=== PATIENT | female | born 1995 | race Caucasian/White ===

== ENCOUNTER 2019-04-16 10:56 | Emergency (ER) | payer BC ==
[~2019-04-16] VITALS: Ht 165.1 cm; Wt 97.8 kg
[~2019-04-16 10:56] MED LIST: IBUP400T; MIRILAX
[2019-04-16] MEDS ORDERED: GLYCERIN ADULT SUPP PR ONE (11:30)
[2019-04-16] MEDS ORDERED: DOCUSATE SODIUM 100 MG CAP PO ONE (11:30)
[2019-04-16 11:50] LABS: BASO % 0.2 % (0.0-1.0); EOS # 0.1 10^3/uL (0.0-0.5); EOS % 0.6 % (0.0-3.0); HEMOGLOBIN 12.2 g/dl (12.0-15.5); LYMPH # 2.3 10^3/uL (1.5-5.0); LYMPH % 18.4 % (24.0-44.0); MEAN CORPUSCULAR HGB CONC 30.5 g/dl (32.0-36.5); MEAN CORPUSCULAR VOLUME 85.3 fl (80.0-96.0); MONO # 0.8 10^3/uL (0.0-0.8); MONO % 6.3 % (0.0-5.0); NEUTROPHILS # 9.4 10^3/uL (1.5-8.5); PLATELET COUNT, AUTOMATED 297 10^3/uL (150-450); RED BLOOD COUNT 4.69 10^6/uL (4.00-5.40); WHITE BLOOD COUNT 12.7 10^3/uL (4.0-10.0)
[2019-04-16 12:32] LABS: BLOOD UREA NITROGEN 9 MG/DL (7-18); CALCIUM LEVEL 9.2 MG/DL (8.5-10.1); CARBON DIOXIDE LEVEL 24 MEQ/L (21-32); CHLORIDE LEVEL 107 MEQ/L (98-107); CREATININE FOR GFR 0.62 MG/DL (0.55-1.30); GLOMERULAR FILTRATION RATE > 60.0 (>60); GLUCOSE, FASTING 81 MG/DL (70-100); HCG, SERUM QUANTITATIVE 33908 MIU/ML; POTASSIUM SERUM 4.3 MEQ/L (3.5-5.1); SODIUM LEVEL 139 MEQ/L (136-145)
--- NOTE | 2019-04-16 13:50 | REP ---
FIRST TRIMESTER ULTRASOUND: Real-time sonographic evaluation of the gravid uterus performed utilizing transabdominal and endovaginal technique. There is a single living intrauterine gestation. The estimated gestational age is 6 weeks 2 days based on a crown-rump length of 6 mm. EDC 12/08/2019. heart rate is 120 beats per minute. There is no subchorionic hemorrhage. There is a cystic structure of the left ovary probably representing a corpus luteum 3.1 x 2.1 x 2.4 cm. There is no torsion with duplex Doppler evaluation. Electronically Signed by Yoni Ozuna MD 04/17/2019 05:49 P
[2019-04-16 14:47] VITALS: BP 111/57
[2019-04-16] MEDS ORDERED: COLA100C5 PO (14:52)
[2019-04-16] MEDS ORDERED: KEFL500C17 PO (14:52)
[2019-04-16 15:08] LABS: CHLAMYDIA DNA AMPLIFICATION NEGATIVE (NEGATIVE); GC DNA AMPLIFICATION NEGATIVE (NEGATIVE)
== END 2019-04-16 15:17 | disposition home or self-care (01) ==
LOC: M ED 10:56
DX: O20.0 Threatened abortion (principal); O34.81 Maternal care for other abnormalities of pelvic organs, first trimester; N83.202 Unspecified ovarian cyst, left side; O23.41 Unspecified infection of urinary tract in pregnancy, first trimester; O99.211 Obesity complicating pregnancy, first trimester; Z3A.01 Less than 8 weeks gestation of pregnancy; Z87.42 Personal history of other diseases of the female genital tract

== ENCOUNTER → 2019-05-26 | Outpatient (CLI) | payer BC ==
[~2019-05-26] MED LIST changes: +COLA100C5 PO; +KEFL500C17 PO
[2019-05-26 16:00] LABS: BASO % 0.2 % (0.0-1.0); EOS # 0.1 10^3/uL (0.0-0.5); EOS % 0.9 % (0.0-3.0); HEMATOCRIT 36.7 % (36.0-47.0); HEMOGLOBIN 11.6 g/dl (12.0-15.5); LYMPH # 1.8 10^3/uL (1.5-5.0); LYMPH % 14.5 % (24.0-44.0); MEAN CORPUSCULAR HEMOGLOBIN 27.6 pg (27.0-33.0); MEAN CORPUSCULAR HGB CONC 31.6 g/dl (32.0-36.5); MEAN CORPUSCULAR VOLUME 87.2 fl (80.0-96.0); MONO # 0.8 10^3/uL (0.0-0.8); MONO % 6.1 % (0.0-5.0); NEUTROPHILS # 9.8 10^3/uL (1.5-8.5); NEUTROPHILS % 77.6 % (36.0-66.0); PLATELET COUNT, AUTOMATED 289 10^3/uL (150-450); RED BLOOD COUNT 4.21 10^6/uL (4.00-5.40); WHITE BLOOD COUNT 12.7 10^3/uL (4.0-10.0)
[2019-05-26 16:11] LABS: GLUCOSE CHALLENGE TEST 1 HOUR 92 MG/DL (LESS THAN 140); HEMOGLOBIN A1c 5.2 %
[2019-05-26 17:13] LABS: CHLAMYDIA DNA AMPLIFICATION NEGATIVE (NEGATIVE); GC DNA AMPLIFICATION NEGATIVE (NEGATIVE)
== END ==
LOC: M PLALAB 09:34
PROVIDERS: ATTEND Advanced Practice Midwife
DX: O99.211 Obesity complicating pregnancy, first trimester (principal); Z3A.00 Weeks of gestation of pregnancy not specified

== ENCOUNTER 2019-07-13 15:42 | Observation (INO) | payer BC ==
[2019-07-13 16:03] VITALS: BP 130/69
[2019-07-13 16:29] LABS: MEAN CORPUSCULAR HEMOGLOBIN 27.8 pg (27.0-33.0); MEAN CORPUSCULAR HGB CONC 32.4 g/dl (32.0-36.5); MEAN CORPUSCULAR VOLUME 85.9 fl (80.0-96.0); PLATELET COUNT, AUTOMATED 251 10^3/uL (150-450); RED BLOOD COUNT 3.96 10^6/uL (4.00-5.40); WHITE BLOOD COUNT 13.7 10^3/uL (4.0-10.0)
[2019-07-13 17:45] VITALS: BP 131/73
[2019-07-13] MEDS ORDERED: SILVER NITRATE APPLICATOR As Ordered ONE (17:53)
[2019-07-13] MEDS ORDERED: CHLOROPROCAINE 2 % INJ PRES.FREE 20 ML VIAL (J2400) As Ordered ONE (18:47)
[2019-07-13] MEDS ORDERED: propofoL 200 MG/20 ML VIAL As Ordered ONE ×2 (19:34→19:54)
[2019-07-13] MEDS ORDERED: MIDAZOLAM INJ 2 MG/2 ML VIAL (J2250) As Ordered ONE (19:40)
[2019-07-13] MEDS ORDERED: KETAMINE HCL 200 MG/20 ML VIAL As Ordered ONE (19:41)
[2019-07-13] MEDS ORDERED: fentaNYL 100 MCG/2 ML INJECTION (J3010) As Ordered ONE (20:29)
[2019-07-13] MEDS ORDERED: KETOROLAC 30 MG/ML VIAL (J1885) As Ordered ONE (20:30)
[2019-07-13] MEDS: fentaNYL 100 MCG/2 ML INJECTION (J3010) IV PRN ×2 (20:35→20:40)
[2019-07-13] MEDS ORDERED: LR 1,000 ML IV SCH (20:45)
[2019-07-13] MEDS ORDERED: KETOROLAC 30 MG/ML VIAL (J1885) IV PRN (20:45)
[2019-07-13] MEDS ORDERED: ONDANSETRON 4MG/2ML VIAL (J2405) IV PRN (20:45)
[2019-07-13] MEDS ORDERED: ACETAMINOPHEN TAB 650MG DOSE (2X325MG) PO PRN (20:45)
[2019-07-13] MEDS ORDERED: ACETAMINOPHEN 325 MG TAB As Ordered ONE (21:06)
[2019-07-13 21:30] VITALS: BP 134/95
[2019-07-13 22:00] VITALS: BP 122/64
[2019-07-13] MEDS ORDERED: PROMETHAZINE INJ 25 MG/ML VIAL (J2550) IV PRN (22:00)
[2019-07-13 22:30] VITALS: BP 123/63
[2019-07-13] MEDS: INDOMETHACIN 25 MG CAP PO SCH (23:19)
[2019-07-13 23:30] VITALS: BP 117/59
[2019-07-14 02:00] VITALS: BP 96/53
[2019-07-14 06:00] VITALS: BP 117/56
[2019-07-14 07:10] LABS: HEMATOCRIT 29.1 % (36.0-47.0); HEMOGLOBIN 9.5 g/dl (12.0-15.5); MEAN CORPUSCULAR HGB CONC 32.6 g/dl (32.0-36.5); MEAN CORPUSCULAR VOLUME 85.8 fl (80.0-96.0); PLATELET COUNT, AUTOMATED 207 10^3/uL (150-450); RED BLOOD COUNT 3.39 10^6/uL (4.00-5.40)
[2019-07-14] MEDS: INDOMETHACIN 25 MG CAP PO SCH ×2 (09:31→15:28)
[2019-07-14 10:00] VITALS: BP 104/58
[2019-07-14 14:00] VITALS: BP 111/53
--- NOTE | 2019-07-14 14:58 | IPNPDOC ---
Text Note Date of Service The patient was seen on 07/14/19. NOTE 23yo G1 CARI 12/06/2019. Admitted at 19w1 days with complaints of heavy bleeding. TVUS was significant for cervical length of 2.0cm Pt was evaluated by Dr Arellano. Consented to urgent placement of Calderon Rescue cerclage on 07/13/2019. Sono performed this am by Dr Arellano shows adequate fluid and active viable fetus Pt reports no further bleeding or cramping. Desires discharge Per consult Dr Arellano, discharged home with strict instructions for primarily bedrest, OOB for meals, showers. Pelvic rest reviewed with pt and partner. Warnings reviewed to call with bleeding more than on wipe, LOF, regular cramping. Pt instructed to keep appt with Dr Arellano 07/24/2019. Discontinued indocin per consult Dr Lewis. VS,Lacy, I+O VS, Lacy, I+O Laboratory Tests 07/13/19 16:18 07/14/19 06:36 Vital Signs Date Time Temp Pulse Resp B/P (MAP) Pulse Ox O2 Delivery O2 Flow Rate FiO2 07/14/19 10:00 97.5 91 16 104/58 (73) 97 Room Air 07/13/19 20:20 10 I&O- Last 24 Hours up to 6 AM 07/14/19 06:00 Intake Total 2600 ml Output Total 150 ml Balance 2450 ml Demi Sarah CNM Jul 14, 2019 14:58
== END 2019-07-14 15:46 | disposition home or self-care (01) ==
LOC: M LDO 15:42 → M PED 17:50 → M OBS 18:09
PROVIDERS: ADMIT Obstetrics & Gynecology; ATTEND Obstetrics & Gynecology
DX: O34.32 Maternal care for cervical incompetence, second trimester (principal); Z3A.19 19 weeks gestation of pregnancy; Z79.899 Other long term (current) drug therapy
CPT/HCPCS: 36415; 59320; 76815; 85027; 86850; 86900; 86901; J1885; J2250; J2400

== ENCOUNTER → 2019-07-13 | Outpatient (CLI) | payer BC ==
--- NOTE | 2019-07-13 16:44 | REP ---
HISTORY: Vaginal bleeding. COMPARISON: I have no priors for comparison. Multiple ultrasonographic images of the gravid uterus show a single living intrauterine gestation in the breech presentation. Doppler interrogation of the heart shows a heart rate of 150 beats per minute. The placenta is posterior and not low lying. The subjective amniotic fluid volume is within normal limits. The cervix measures 2 cm in length and is closed. Evaluation of the maternal adnexal spaces show no abnormalities. BPD 4.4 cm = 19 weeks 2 days HC 16.2 cm = 19 weeks 0 days AC 13.4 cm = 18 weeks 6 days FL 3.0 cm = 19 weeks 1 day The estimated weight is 230 grams which is at the 44th percentile for 19 week 1 day gestational age. anatomical structures seen to be within normal limits are as follows: Thalami, cavum septum pellucidum, cerebellum, cisterna magna, spine, kidneys, urinary bladder, stomach, cord insertion, three vessel umbilical cord, upper lip, and upper and lower extremities. The structures suboptimally visualized are as follows: Four chamber heart and ventricular outflow tracts. IMPRESSION: Single living intrauterine gestation as described above with an estimated gestational age of 19 weeks 0 days via composite criteria and estimated date of delivery of 12/07/2019 by today's exam. No anomalies were detected, however, suboptimal visualization of aforementioned structures should require followup for confirmation. No placenta or retroplacental abnormality was seen today.
== END ==
LOC: M WHC 12:51
PROVIDERS: ATTEND Obstetrics & Gynecology
DX: O46.92 Antepartum hemorrhage, unspecified, second trimester (principal)

== ENCOUNTER 2019-07-17 00:52 | Inpatient (IN) | payer BC ==
[~2019-07-17] VITALS: Ht 165.1 cm; Wt 101.1 kg
[2019-07-17] MEDS ORDERED: LR 1,000 ML IV SCH ×2 (01:09→03:15)
[2019-07-17] MEDS ORDERED: propofoL 200 MG/20 ML VIAL As Ordered ONE ×2 (01:23→02:06)
[2019-07-17] MEDS ORDERED: dexameTHASONE 4 MG/ML 1ML VIAL (J1100 PER 1MG) As Ordered ONE ×2 (01:23→02:06)
[2019-07-17] MEDS ORDERED: LIDOCAINE 2% INJ 100 MG/5 ML SDV (FOR ANES.) As Ordered ONE ×2 (01:23→02:06)
[2019-07-17 01:34] LABS: HEMATOCRIT 31.9 % (36.0-47.0); HEMOGLOBIN 10.2 g/dl (12.0-15.5); MEAN CORPUSCULAR HEMOGLOBIN 27.7 pg (27.0-33.0); MEAN CORPUSCULAR VOLUME 86.7 fl (80.0-96.0); PLATELET COUNT, AUTOMATED 268 10^3/uL (150-450); RED BLOOD COUNT 3.68 10^6/uL (4.00-5.40); WHITE BLOOD COUNT 18.1 10^3/uL (4.0-10.0)
[2019-07-17] MEDS ORDERED: CHLOROPROCAINE PRES. FREE 3% INJ 20 ML VIAL (J2400) As Ordered ONE (01:36)
[2019-07-17] MEDS ORDERED: LIDOCAINE 1% MDV 20ML VIAL As Ordered ONE (01:37)
[2019-07-17] MEDS ORDERED: METHYLERGONOVINE MALEATE 0.2 MG/ML VIAL (J2210) As Ordered ONE (01:37)
[2019-07-17] MEDS ORDERED: CARBOPROST TROMETHAMINE 250 MCG/ML AMP As Ordered ONE (01:37)
[2019-07-17] MEDS ORDERED: MIDAZOLAM INJ 2 MG/2 ML VIAL (J2250) As Ordered ONE (01:49)
[2019-07-17] MEDS ORDERED: SUCCINYLCHOLINE 100 MG/5 ML SYRINGE (J0330) As Ordered ONE (02:08)
[2019-07-17] MEDS ORDERED: ceFAZolin 2 GM/D5W 50 ML IV BAG (J0690 PER 500MG) As Ordered ONE (02:19)
[2019-07-17] MEDS ORDERED: fentaNYL 100 MCG/2 ML INJECTION (J3010) As Ordered ONE (02:23)
[2019-07-17] MEDS ORDERED: ACETAMINOPHEN 1000MG 100ML IV BTL (OFIRMEV) (J0131 PER 10MG) As Ordered ONE (02:25)
[2019-07-17] MEDS ORDERED: ONDANSETRON 4MG/2ML VIAL (J2405) As Ordered ONE (02:39)
[2019-07-17] MEDS ORDERED: KETOROLAC 60 MG/2 ML VIAL (J1885) As Ordered ONE (02:41)
[2019-07-17] MEDS ORDERED: PERCOCET 5MG/325MG TAB PO PRN ×2 (03:00→04:00)
[2019-07-17] MEDS ORDERED: PHENYLephrine HCL 500 MCG/5 ML (100MCG/ML) SYRINGE (J2370) As Ordered ONE (03:01)
[2019-07-17] MEDS ORDERED: LR 500 ML IV ONE (03:15)
[2019-07-17] MEDS ORDERED: fentaNYL 100 MCG/2 ML INJECTION (J3010) IV PRN (03:15)
[2019-07-17] MEDS ORDERED: ONDANSETRON 4MG/2ML VIAL (J2405) IV PRN (03:15)
[2019-07-17] MEDS ORDERED: PHENYLephrine HCL 500 MCG/5 ML (100MCG/ML) SYRINGE (J2370) IV PRN (03:15)
--- NOTE | 2019-07-17 06:24 | HPE ---
DATE OF ADMISSION: 07/17/2019 HISTORY OF PRESENT ILLNESS: 23-year-old, (G) 1, para (P) 0 female, 19 and 4/7 weeks gestation who presents with a gush of bloody fluid at home followed very quickly by delivery of a 19 week nonviable fetus. She had had an emergency cerclage placed on 07/13/2019 for advanced cervical dilation and funneling. She called an ambulance and was brought into the hospital immediately. She continued to have cramping and bleeding. The placenta has not delivered. MEDICAL HISTORY: Noncontributory. SURGICAL HISTORY: Noncontributory. ALLERGIES: None. SOCIAL HISTORY: The father of the baby is involved. The patient denies cigarettes, alcohol or drug use. FAMILY HISTORY: Noncontributory. PHYSICAL EXAMINATION: Blood pressure 134/74. Pulse 84. She appears uncomfortable. Head and Neck Exam: Normal. Lungs: Clear. Heart: Regular rate and rhythm. Abdomen: Nontender. Soft. Sterile Speculum Exam: Moderate bleeding encountered. Placenta is in the uterus with no descent. Fetus is on the bed with the patient and is nonviable. Tight band of suture around part of the cervix. Extremities: Nontender. LABS: Hemoglobin 10.2 g/dL. ASSESSMENT: 23-year-old, G1, at 19 weeks gestation with an incomplete spontaneous and cervical laceration status post cerclage placement. PLAN: Given that the patient has continued bleeding and discomfort and exam is difficult at the bedside, plan to go to the operating room (OR) for removal of cerclage, repair of cervical laceration and removal of placenta. Consents were signed.
[2019-07-17 07:56] VITALS: BP 128/58
--- NOTE | 2019-07-17 08:09 | RO ---
DATE OF PROCEDURE: 07/17/2019 PREPROCEDURE DIAGNOSIS: Incomplete , cervical laceration. POSTPROCEDURE DIAGNOSIS: Incomplete , cervical laceration. PROCEDURE: Dilation and curettage, removal of cervical cerclage, repair of cervical laceration. SURGEON: Dr. Pedro Lewis. APARTMENT LEASING AGENT: ANESTHESIA: General endotracheal. ESTIMATED BLOOD LOSS: 300 mL. FINDINGS: 22-week size placenta with large retroplacental clot. Laceration to the posterior cervix with the cerclage still present in the anterior cervix. Small amount of bleeding from the lacerated edge of the posterior cervix. DESCRIPTION OF PROCEDURE: Patient taken to the operating room where general endotracheal anesthesia was induced. She was prepped and draped in a sterile fashion in the dorsal lithotomy position. A weighted speculum was placed. A Zepeda retractor was placed anteriorly. The anterior lip of the cervix grasped with a tenaculum. The cervix was already dilated, cerclage was visible. I ring forceps was used to grasp the placenta which was removed intact along with the clot. Sharp curettage was performed. The uterine cavity emptied. forceps was used to elevate the cerclage which was incised with Rivas scissors. The cerclage was removed in its entirety. Upon inspection, the posterior cervix noted a laceration with a mild amount of bleeding. Splinter forceps were used to elevate the cervix which was sewn with #3-0 Vicryl suture in a running locked fashion around the posterior edge of the cervix from 3-o'clock position to 7-o'clock position. Good hemostasis was noted. All instruments were removed. Sponge instrument and needle counts were correct. The patient was extubate and went to the recovery room in stable condition.
[2019-07-17] MEDS ORDERED: MEASLES,MUMPS,RUBELLA VACCINE INJ (MMR-II) (90707) SQ ONE (12:00)
[2019-07-17] MEDS ORDERED: ACET-897 PO (13:02)
--- NOTE | 2019-07-17 13:08 | DS.PDOC ---
Discharge Summary General Date of Admission Jul 17, 2019 at 00:58 Date of Discharge 07/17/2019 Primary Care Physician: TAMARA COKER CNM Attending Physician: JULIO BERG MD Discharge Summary PROCEDURES PERFORMED DURING STAY: cervical laceration repair and D&C ADMITTING DIAGNOSES: 1. PPROM with spontaneous vaginal delivery of a non-viable fetus at 19 weeks 4 days gestation. DISCHARGE DIAGNOSES: 1. cervical incompetence with 19 week 4 days gestation IUFD via vaginal delivery. 2. Cervical laceration from cerclage placement 3. D&C of retained placenta COMPLICATIONS/CHIEF COMPLAINT: 19 Week IUFD. HISTORY OF PRESENT ILLNESS: Patient is a 23-year-old female who is a at 19 weeks 4 days gestation who had a rescue cerclage placed 07/13/19 after having an episode of bleeding and found to have an incompetent cervix. She called an ambulance service due to PPROM and quickly had a vaginal delivery of a non- viable fetus shortly after. She presented to L&D and was brought to the OR for removal of cerclage, repair of cervical laceration and D&C of retained placenta. Patient tolerated the procedures well. She did not want or cremation ser vices done and fetus was sent to pathology. She was discharged per Dr. Berg's recommendation. HOSPITAL COURSE: uncomplicated. DISCHARGE MEDICATIONS: Please see below. ALLERGIES: Please see below. PHYSICAL EXAMINATION ON DISCHARGE: VITAL SIGNS: Please see below. GENERAL: A+Ox3. RESPIRATORY EXAMINATION: regular rate and rhythm. No use of accessory muscles. Perineum: scant bleeding noted EXTREMITIES: no edema noted bilaterally SKIN: warm, dry and intact. No unusual rashes or lesion. NEUROLOGICAL EXAMINATION: patient is weepy but appropriate for situation. LABORATORY DATA: Please see below. ACTIVITY: As tolerated. DIET: regular DISCHARGE INSTRUCTIONS: 1. Discharge to home. Follow-up in 6 weeks or sooner. 2. Reviewed plan of care for next including first trimester cerclage between 11-13 weeks gestation. Patient encouraged to continue vitamins. 3. Reviewed danger signs to report including signs and symptoms of hemorrhage, depression, what to do to prevent her milk supply from coming in, what to expect over the next few weeks, and other danger signs to report. DISCHARGE CONDITION: Stable. Vital Signs/I&Os Vital Signs Date Time Temp Pulse Resp B/P (MAP) Pulse Ox O2 Delivery O2 Flow Rate FiO2 07/17/19 07:56 97.3 76 18 128/58 (81) 07/17/19 03:40 97 Room Air 07/17/19 03:15 10 I&O- Last 24 Hours up to 6 AM 07/17/19 06:00 Intake Total 1800 ml Output Total 1150 ml Balance 650 ml Laboratory Data Labs 24H Laboratory Tests 2 07/17/19 01:15: Nucleated Red Blood Cells % (auto) 0.0 CBC/BMP Laboratory Tests 07/17/19 01:15 Discharge Medications Scheduled PRN Acetaminophen (Tylenol Extra Strength) 500 Mg Tablet, 500 MG PO Q8HP PRN for PAIN Allergies Coded Allergies: No Known Allergies (Unverified , 04/16/19) TAMARA COKER CNM Jul 17, 2019 13:08
== END 2019-07-17 13:15 | disposition home or self-care (01) | DRG 544 ==
LOC: M LDO 00:52 → M LDI 00:58
PROVIDERS: ADMIT Specialist; ATTEND Specialist
PROC: 0UQC7ZZ Repair Cervix, Via Natural or Artificial Opening (ICD-10-PCS; 2019-07-17)
PROC: 0UPD7CZ Removal of Extraluminal Device from Uterus and Cervix, Via Natural or Artificial Opening (ICD-10-PCS; 2019-07-17)
PROC: 10D17ZZ Extraction of Products of Conception, Retained, Via Natural or Artificial Opening (ICD-10-PCS; principal; 2019-07-17 02:00)
DX: O03.34 Damage to pelvic organs following incomplete spontaneous abortion (principal); O34.30 Maternal care for cervical incompetence, unspecified trimester; Z3A.19 19 weeks gestation of pregnancy; O73.0 Retained placenta without hemorrhage

== ENCOUNTER → 2020-01-21 | Outpatient (CLI) | payer BC ==
[~2020-01-21] MED LIST changes: +ACET-897 PO; +INDO50CA91 PO; +PRENTAB53 PO
== END ==
LOC: M LABSMTC 10:01
PROVIDERS: ATTEND Anesthesiology
DX: Z01.812 Encounter for preprocedural laboratory examination (principal); Z20.828 Contact with and (suspected) exposure to other viral communicable diseases
CPT/HCPCS: C9803; U0003

== ENCOUNTER 2020-01-26 10:37 | Day surgery (SDC) | payer BC ==
[~2020-01-26] VITALS: Ht 162.6 cm; Wt 103.4 kg
[~2020-01-26 10:37] MED LIST changes: -INDO50CA91 PO; +LR 1,000 ML IV ONE
[2020-01-26 11:15] LABS: HEMATOCRIT 33.2 % (36.0-47.0); HEMOGLOBIN 9.8 g/dl (12.0-15.5); MEAN CORPUSCULAR HEMOGLOBIN 21.4 pg (27.0-33.0); MEAN CORPUSCULAR HGB CONC 29.5 g/dl (32.0-36.5); MEAN CORPUSCULAR VOLUME 72.5 fl (80.0-96.0); PLATELET COUNT, AUTOMATED 296 10^3/uL (150-450); RED BLOOD COUNT 4.58 10^6/uL (4.00-5.40); WHITE BLOOD COUNT 12.5 10^3/uL (4.0-10.0)
[2020-01-26] MEDS ORDERED: propofoL 500 MG/50 ML VIAL As Ordered ONE (12:12)
[2020-01-26] MEDS ORDERED: LACRILUBE (AKWA TEARS) OPHTH OINT 3.5 GM As Ordered ONE (13:34)
[2020-01-26] MEDS ORDERED: ONDANSETRON 4MG/2ML VIAL As Ordered ONE (13:36)
[2020-01-26] MEDS ORDERED: ONDANSETRON 4MG/2ML VIAL IV PRN (14:00)
[2020-01-26] MEDS ORDERED: LR 1,000 ML IV SCH ×2 (14:00→15:15)
[2020-01-26] MEDS ORDERED: oxyCODONE 5MG TAB PO PRN (14:00)
[2020-01-26] MEDS ORDERED: INDOMETHACIN 25 MG CAP PO ONE (15:00)
[2020-01-26] MEDS ORDERED: INDOMETHACIN 25 MG CAP PO PRN (16:00)
[2020-01-26] MEDS ORDERED: INDO50CA91 PO (16:49)
[2020-01-26 16:50] VITALS: BP 144/67
--- NOTE | 2020-01-26 17:12 | ROOPDOC ---
[facility] Report Of Operation Report of Operation DATE OF PROCEDURE: 01/26/20 PREPROCEDURE DIAGNOSES: Cervical insufficiency, history of previable . Currently 14+3 weeks EGA POSTPROCEDURE DIAGNOSES: same PROCEDURE: Monroe cerclage (history-indicated). SURGEON: Mark Arellano DO FACOG METAL FABRICATOR WELDER: none ANESTHESIA: Spinal COMPLICATIONS: None PREOPERATIVE ANTIBIOTIC: None indicated. ESTIMATED BLOOD LOSS: 100 mL IV FLUIDS: 400 mL LR URINE OUTPUT: 150 mL (in and out catheter) FINDINGS: Large parous cervix, but no exposed membranes or advanced dilation. Cervix exhibited a very large circumferential ectropion. Friable upon contact. Cerclage knot at 12 o'clock at the level of the cervicovaginal junction. heart rate pre- and post- cerclage was 140-150bpm. A limited bedside ultrasound was performed in the PACU, which revealed normal amniotic fluid volume, movement, and a normal heart rate. PROCEDURE: The patient was counseled and consented on risks, benefits, indications and alternatives of the procedure. Informed consent was obtained. She was taken to the operating room with an IV running. She was moved to the operating table where spinal anesthesia was administered without any difficulty. She was placed in the high lithotomy position. She was prepared and draped in the typical sterile fashion. A time out was performed per protocol. Attention was turned to the pelvis. The bladder was drained with in and out don rile catheter. A speculum was placed with good visualization of the cervix. Ring forceps were used at the anterior lip of the cervix to manipulate the cervix. Using 1-Prolene suture, a pursestring stitch was placed around the cervix at the level of the cervicovaginal junction. The knot was tied at 12:00. Minimal bleeding from the cervix was noted. There was no evidence of ruptured membranes. Holding pressure against the friable ectropion with a sponge stick, the bleeding from the cervix ceased. All instruments were removed from the vagina. A sterile digital vaginal exam revealed a closed long cervix with less than a fingertip dilation (less than 1 cm). Sponge, needle and instrument counts were correct per protocol. She tolerated the entire procedure very well. She was transferred to the PACU in good and stable condition. DO CIERRA Browning JONATHAN R. DO Jan 26, 2020 15:31
== END 2020-01-26 16:50 | disposition home or self-care (01) ==
LOC: M SDC 10:37
PROVIDERS: ATTEND Obstetrics & Gynecology
DX: O34.32 Maternal care for cervical incompetence, second trimester (principal); Z3A.14 14 weeks gestation of pregnancy
CPT/HCPCS: 36415; 59320; 85027; 86850; 86900; 86901; J2405

== ENCOUNTER → 2020-03-07 | Outpatient (CLI) | payer BC ==
[~2020-03-07] MED LIST changes: +INDO50CA91 PO; -LR 1,000 ML IV ONE
--- NOTE | 2020-03-08 07:32 | REP ---
INDICATION: ANATOMY COMPARISON: None. TECHNIQUE: Transabdominal obstetrical ultrasound with color Doppler evaluation. FINDINGS: Examination demonstrates a single live intrauterine in transverse presentation. motion is identified by technologist. Placenta is noted posterior and grade 0 without evidence for placenta previa or abruption. Amniotic fluid volume is normal. There appears to be funneling at the internal os. The closed portion of the cervix measures 2.2 cm in length and technologist describes a stitch at the beginning of the closed cervix. Gestational age by LMP twenty weeks 2 days with CARI 07/23/2020. Gestational age by current measurements 20 weeks 2 days with CARI 07/23/2020. FHR equals 130 beats per minute. BPD: 4.8 cm 20 weeks 3 days HC: 18.1 cm 20 weeks 3 days AC: 14.9 cm 20 weeks 1 day FL: 3.3 cm 20 weeks 2 days HL: 3.1 cm 20 weeks 2 days HC/AC: 1.21 Estimated weight 341 grams (42ndpercentile). Anatomical assessment demonstrates normal structures including cranium, choroid plexus, cavum, cerebellum/posterior fossa, diaphragm, stomach, cord insertion/three-vessel cord, kidneys/bladder, spine, and extremities. Limited evaluation of the facial features including nose/lips and heart/ventricular outflow tracts. IMPRESSION: 1. Single live intrauterine in transverse lie demonstrating appropriate estimated weight and growth. 2. Anatomical limitations as noted above may warrant re-evaluation and follow-up. 3. Cervical findings including funneling of the internal os and closed cervical length of 2.2 cm. <Electronically signed by Ej Shell > 03/08/20 0725
== END ==
LOC: M WHC 11:09
PROVIDERS: ATTEND Specialist
DX: Z34.92 Encounter for supervision of normal pregnancy, unspecified, second trimester (principal); Z3A.20 20 weeks gestation of pregnancy

== ENCOUNTER → 2020-03-22 | Outpatient (REF) | payer BC | LOC: M SFHCWAGY 17:18 | PROVIDERS: ATTEND Specialist | DX: N39.0 Urinary tract infection, site not specified (principal) ==

== ENCOUNTER → 2020-03-27 | Outpatient (CLI) | payer BC ==
--- NOTE | 2020-03-28 08:54 | REP ---
INDICATION: F/U ANATOMY COMPARISON: 03/07/2020 TECHNIQUE: Transabdominal obstetrical ultrasound with color Doppler evaluation. FINDINGS: Examination demonstrates a single live intrauterine in cephalic presentation. motion is identified by technologist. Placenta is noted posterior and grade 1 without evidence for placenta previa or abruption. Amniotic fluid volume is normal. Funneling at the internal os is noted along with suture material as noted by technologist. The closed cervical length measures 2.2 cm. Gestational age by LMP 23 weeks 1 day with CARI 07/23/2020. Gestational age by current measurements 24 weeks 0 days with CARI 07/17/2020. FHR equals 156 beats per minute. Estimated weight 603 grams (63rdpercentile). Anatomical assessment demonstrates normal structures including cranium, facial features, four-chamber heart/ventricular outflow tracts, stomach, kidneys and bladder. IMPRESSION: 1. Single live intrauterine in cephalic presentation demonstrating appropriate interval growth. 2. In conjunction with prior examination anatomical assessment is complete and normal. 3. Funneling and suture material noted at the internal os with a closed cervical length of 2.2 cm noted. <Electronically signed by Ej Shell > 03/28/20 [id number]
== END ==
LOC: M WHC 15:11
PROVIDERS: ATTEND Specialist
DX: Z36.9 Encounter for antenatal screening, unspecified (principal); Z3A.24 24 weeks gestation of pregnancy

== ENCOUNTER → 2020-04-02 | Outpatient (REF) | payer BC | LOC: M SFHCWAGY 16:36 | PROVIDERS: ATTEND Advanced Practice Midwife | DX: Z34.82 Encounter for supervision of other normal pregnancy, second trimester (principal); Z3A.00 Weeks of gestation of pregnancy not specified ==

== ENCOUNTER → 2020-04-19 | Outpatient (REF) | payer BC ==
[2020-04-19 18:06] LABS: HEMATOCRIT 31.5 % (36.0-47.0); MEAN CORPUSCULAR HEMOGLOBIN 21.2 pg (27.0-33.0); MEAN CORPUSCULAR HGB CONC 28.6 g/dl (32.0-36.5); MEAN CORPUSCULAR VOLUME 74.1 fl (80.0-96.0); PLATELET COUNT, AUTOMATED 311 10^3/uL (150-450); RED BLOOD COUNT 4.25 10^6/uL (4.00-5.40); WHITE BLOOD COUNT 13.9 10^3/uL (4.0-10.0)
== END ==
LOC: M PLALAB 14:17
PROVIDERS: ATTEND Advanced Practice Midwife
DX: Z34.82 Encounter for supervision of other normal pregnancy, second trimester (principal)

== ENCOUNTER → 2020-05-16 | Outpatient (CLI) | payer BC | LOC: M WHC 13:52 | PROVIDERS: ATTEND Obstetrics & Gynecology | DX: O26.843 Uterine size-date discrepancy, third trimester (principal); Z53.9 Procedure and treatment not carried out, unspecified reason ==

== ENCOUNTER → 2020-06-03 | Outpatient (CLI) | payer BC ==
--- NOTE | 2020-06-03 08:49 | REP ---
INDICATION: UTERINE SIZE-DATE DISCREPANCY,GROWTH COMPARISON: 03/07/2020 TECHNIQUE: Transabdominal obstetrical ultrasound with color Doppler evaluation. FINDINGS: Examination demonstrates a single live intrauterine in cephalic presentation. motion is identified by technologist. Placenta is noted posterior and grade 2 without evidence for placenta previa or abruption. Amniotic fluid volume is normal. Cervix measures 3.1 cm in length and appears closed.. Gestational age by 1st ultrasound 32 weeks 6 days with CARI 07/23/2020. Gestational age by current measurements 34 weeks 3 days with CARI 07/12/2020. FHR equals 152 beats per minute. Estimated weight 2368 grams (79thpercentile based on age by 1st ultrasound). MINGO: 12.3 cm (8.3-24.5). IMPRESSION: Single live advanced gestation in cephalic presentation demonstrating appropriate estimated weight and growth. <Electronically signed by Ej Shell > 06/03/20 [id number]
== END ==
LOC: M WHC 07:03
PROVIDERS: ATTEND Obstetrics & Gynecology
DX: O26.843 Uterine size-date discrepancy, third trimester (principal); Z3A.32 32 weeks gestation of pregnancy

== ENCOUNTER 2020-06-27 12:09 | Outpatient (CLI) | payer BC ==
[~2020-06-27] VITALS: Ht 162.6 cm; Wt 114.8 kg
[2020-06-27 12:32] VITALS: BP 109/67
[2020-06-27] MEDS ORDERED: IRON27TA2 PO (12:33)
[2020-06-27] MEDS ORDERED: OMEP40CA97 PO (12:33)
[2020-06-27] MEDS ORDERED: BUSP5TA PO (12:33)
[2020-06-27] MEDS ORDERED: ACET325C5 PO (12:33)
[2020-06-27] MEDS ORDERED: LACTATED RINGER'S 1000 ML IV STA (13:11)
[2020-06-27] MEDS ORDERED: LR 1,000 ML IV SCH (13:11)
[2020-06-27 13:39] LABS: HEMATOCRIT 38.9 % (36.0-47.0); HEMOGLOBIN 11.9 g/dl (12.0-15.5); MEAN CORPUSCULAR HEMOGLOBIN 25.9 pg (27.0-33.0); MEAN CORPUSCULAR HGB CONC 30.6 g/dl (32.0-36.5); MEAN CORPUSCULAR VOLUME 84.7 fl (80.0-96.0); PLATELET COUNT, AUTOMATED 238 10^3/uL (150-450); RED BLOOD COUNT 4.59 10^6/uL (4.00-5.40); WHITE BLOOD COUNT 12.5 10^3/uL (4.0-10.0)
[2020-06-27 14:25] VITALS: BP 119/72
[2020-06-27] MEDS ORDERED: LIDOCAINE 2% 100MG/5ML SDV (FOR ANES.) As Ordered ONE (17:34)
[2020-06-27] MEDS ORDERED: propofoL 200 MG/20 ML VIAL As Ordered ONE (17:34)
[2020-06-27] MEDS ORDERED: dexameTHASONE 4 MG/ML 1ML VIAL (J1100 PER 1MG) As Ordered ONE (17:34)
[2020-06-27] MEDS ORDERED: PHENYLephrine 500MCG 5ML (100MCG/ML) SYRINGE As Ordered ONE ×3 (18:20→18:42)
--- NOTE | 2020-06-27 18:40 | ROOPDOC ---
[facility] Report Of Operation Report of Operation DATE OF PROCEDURE: 06/27/20 PREPROCEDURE DIAGNOSES: Cervical insufficiency, 36+ weeks (due for cerclage removal) POSTPROCEDURE DIAGNOSES: Same PROCEDURE: Cerclage removal. SURGEON: Adela Arellano DO PROPERTY MANAGEMENT ACCOUNTANT: none ANESTHESIA: Spinal ESTIMATED BLOOD LOSS: Approximately 5mL COMPLICATIONS: none INDICATIONS: unable to remove cerclage in exam room earlier today, secondary to patient discomfort and body habitus DESCRIPTION OF PROCEDURE: A time out was performed per protocol. She was prepared and draped. The bladder was drained with an in and out catheter. A sterile speculum was inserted into the vagina. Excellent visualization of the cervix and cerclage was achieved. The anterior lip of the cervix was grasped with a ring forcep and downward traction allowed for the loop of the cerclage to be elevated. The stitch was cut and removed in it's entirety without difficulty/complication. SVE at the conclusion of the case revealed 4cm dilation, 75%effacement, and -3 station. No evidence of PPROM or cervical laceration/bleeding. Sponge, needle and instrument counts were correct. Transferred to the PACU in good, stable condition. FHR 140-160bpm prior to procedure and immediately after procedure. DO UYEN Browning JONATHAN R. DO Jun 27, 2020 18:40
[2020-06-27] MEDS ORDERED: BETAMETHASONE SOLUSPAN 6MG/ML 5ML VIAL (J0702 PER 3MG) IM SCH (19:00)
--- NOTE | 2020-06-28 07:53 | IPNPDOC ---
Text Note Date of Service The patient was seen on 06/28/20. NOTE Ms Srivastava is comfortable. Denies regular UC, bleeding or LOF Per consult Dr Arellano, repeat betamethasone this am then discharge if stable. Pt aware. VS,Fishbone, I+O VS, Fishbone, I+O Laboratory Tests 06/27/20 13:25 Vital Signs Date Time Temp Pulse Resp B/P (MAP) Pulse Ox O2 Delivery O2 Flow Rate FiO2 06/27/20 19:15 96.9 108 15 135/76 (95) 100 Room Air I&O- Last 24 Hours up to 6 AM 06/28/20 06:00 Intake Total 2450 ml Balance 2450 ml Demi Sarah CNM Jun 28, 2020 07:53
[2020-06-28] MEDS ORDERED: BETAMETHASONE SOLUSPAN 6MG/ML 5ML VIAL (J0702 PER 3MG) IM ONE (08:00)
[2020-06-28 08:14] VITALS: BP 125/58
--- NOTE | 2020-06-28 09:15 | IPNPDOC ---
Text Note Date of Service The patient was seen on 06/28/20. NOTE Has received 2nd betamethasone Cat I tracing. mild irregular uterine irritability Discharge home. Pelvic rest, TOMY, daily FKC, warnings reviewed RTO next week VS,Fishbone, I+O VS, Fishbone, I+O Laboratory Tests 06/27/20 13:25 Vital Signs Date Time Temp Pulse Resp B/P (MAP) Pulse Ox O2 Delivery O2 Flow Rate FiO2 06/28/20 08:14 97.5 101 18 125/58 (80) 06/27/20 19:15 100 Room Air I&O- Last 24 Hours up to 6 AM 06/28/20 06:00 Intake Total 2450 ml Balance 2450 ml Demi Sarah CNM Jun 28, 2020 09:15
== END 2020-06-28 09:30 | disposition home or self-care (01) ==
LOC: M LDO 12:09
PROVIDERS: ATTEND Obstetrics & Gynecology
DX: Z48.02 Encounter for removal of sutures (principal); O34.33 Maternal care for cervical incompetence, third trimester; Z3A.36 36 weeks gestation of pregnancy; O99.213 Obesity complicating pregnancy, third trimester; E66.9 Obesity, unspecified; Z68.41 Body mass index [BMI] 40.0-44.9, adult
CPT/HCPCS: 59025; 59871; 85027; 86850; 86900; 86901; 87081; G0378; G0463; J0702; J2370; U0002

== ENCOUNTER 2020-07-08 02:58 | Inpatient (IN) | payer BC ==
[2020-07-08] VITALS (44 sets, daily range): BP systolic 107–154; BP diastolic 53–105
[~2020-07-08] VITALS: Ht 165.1 cm; Wt 114.7 kg
[~2020-07-08 02:58] MED LIST changes: +ACET325C5 PO; +BUSP5TA PO; +IRON27TA2 PO; +OMEP40CA97 PO
[2020-07-08] MEDS ORDERED: LACTATED RINGER'S 1000 ML IV STA (04:36)
[2020-07-08] MEDS ORDERED: LR 1,000 ML IV SCH ×2 (04:36→12:15)
[2020-07-08] MEDS ORDERED: OXYTOCIN DRIP 30 UNITS in IV 1 EA IV PRN ×12 (04:40→10:30)
[2020-07-08] MEDS ORDERED: METHYLERGONOVINE MALEATE 0.2 MG/ML VIAL (J2210) IM PRN ×2 (04:40→10:30)
[2020-07-08] MEDS ORDERED: LIDOCAINE 1% MDV 20ML VIAL INFIL PRN ×2 (04:40→10:30)
[2020-07-08] MEDS ORDERED: TRANEXAMIC ACID INJection 1,000 MG in NS 100 ML IV PRN ×2 (04:40→10:30)
[2020-07-08] MEDS ORDERED: OXYTOCIN INJ 10 UNITS/ML VIAL (J2590) IM PRN ×2 (04:40→10:30)
[2020-07-08] MEDS ORDERED: OXYTOCIN INJ 10 UNITS/ML VIAL (J2590) IV PRN ×2 (04:40→10:30)
[2020-07-08] MEDS ORDERED: CARBOPROST TROMETHAMINE 250 MCG/ML AMP IM PRN ×2 (04:40→10:30)
[2020-07-08 04:54] LABS: HEMATOCRIT 41.3 % (36.0-47.0); HEMOGLOBIN 12.7 g/dl (12.0-15.5); MEAN CORPUSCULAR HEMOGLOBIN 26.5 pg (27.0-33.0); MEAN CORPUSCULAR HGB CONC 30.8 g/dl (32.0-36.5); PLATELET COUNT, AUTOMATED 225 10^3/uL (150-450); WHITE BLOOD COUNT 15.3 10^3/uL (4.0-10.0)
--- NOTE | 2020-07-08 04:55 | HPEPDOC ---
Obstetrical History & Physical General Date of Admission 07/08/20 History of Present Illness 24-year-old G2, P0100 at 37+6 weeks gestation. Presents with frequent, painful uterine contractions over the past several hours. Complains of leakage of fluid. Denies vaginal bleeding. Reports regular movement. ROS: no ONEAL, cp, sob, fever/chills/nausea/vomiting. course: 1. History of cervical insufficiency and pre-viable delivery at 19 weeks. Status post Monroe cerclage and vaginal progesterone; cerclage removed on 06/27/2020. PMH: obesity, depression/anxiety, GERD SH: cerclage x 2 Meds: vitamin, Buspar 5mg BID, Omeprazole 40mg daily, Fe gluconate BID All: NKDA DEPARTMENT EDITOR: No STI or dysplasia OB: G1: at 19 weeks (emergency/rescue cerclage; PPROM; cervical lac/repair). G2: current (history-indicated cerclage) Sochx: No tobacco, alcohol or drug use FamHx: mother, endometriosis labs: Blood type A+, antibody screen negative, HepBsAg neg, HIV neg, rubella immune, Hep C antibody negative, RPR nonreactive, CT/GC neg, urine culture negative, 1 hour glucose challenge test 98, GBS negative COVID-19 screen negative imaging: no anomalies or placental abnormalities Past Medical History Allergies Coded Allergies: No Known Allergies (Unverified , 04/16/19) Medications Scheduled Buspirone HCl (Buspirone HCl) 5 Mg Tablet, 5 MG PO BID Ferrous Gluconate (Iron) 236 Mg Tablet, 1 TAB PO DAILY Omeprazole (Omeprazole) 40 Mg Capsule.dr, 40 MG PO DAILY Vit,Calc76/Iron/Folic (Prenatabs Rx Tablet) 1 Each Tablet, 1 TAB PO DAILY Miscellaneous Medications Acetaminophen (Tylenol) 325 Mg Capsule, 325 MG PO Physical Examination Physical Examination GENERAL: Alert and oriented times three. ABDOMEN: Gravid and non-tender to touch. FETUS: Is vertex (VTX) by sterile vaginal examination (SVE), fetus is vertex (VTX) by Luis. HEART RATE: Regular rate and rhythm. LUNGS: Clear to auscultation (CTA). EXTREMITIES: No edema. No clonus. SVE: 6-7cm, 90%, -2, cephalic, intact/bulging membranes EFM: Cat I FHR [place]: ctxs every 3-5 min Assessment/Plan Assessment 24yo at 37+6 weeks EGA. Active labor. Reassuring maternal and status. Plan Admit and orient. Home Appliance Tech and consent. Labs and intravenous (IV) per unit protocol. Anticipate normal spontaneous delivery (). C-S as appropriate. KASSI QIU DO Jul 08, 2020 04:55
[2020-07-08] MEDS ORDERED: FENTANYL 2MCG/ML ROPIVACAINE 0.2% IN 0.9% NACL 100ML IVBAG As Ordered ONE (04:57)
[2020-07-08] MEDS ORDERED: FENTANYL/ROPIVACAINE/NACL BAG 100 ML EPIDURAL SCH (06:00)
[2020-07-08] MEDS ORDERED: NALOXONE INJ 0.4MG/1ML VIAL (J2310 PER 1MG) IV PRN ×3 (06:00→11:10)
[2020-07-08] MEDS ORDERED: REFRIGERATOR IV KEYS XX PRN (06:00)
[2020-07-08] MEDS ORDERED: EPIDURAL COMMENT XX SCH (06:00)
[2020-07-08] MEDS ORDERED: EPIDURAL/PCA KEYS XX PRN (06:00)
[2020-07-08] MEDS ORDERED: LACTATED RINGER'S 1000 ML IV PRN (06:00)
[2020-07-08] MEDS ORDERED: ONDANSETRON 4MG/2ML VIAL IV PRN ×4 (06:00→12:15)
[2020-07-08] MEDS ORDERED: diphenhydrAMINE 50MG/ML VIAL (J1200) IV PRN ×2 (06:00→11:10)
[2020-07-08] MEDS ORDERED: ePHEDrine SULFATE 25 MG/5 ML(5MG/ML) SYRINGE IV PRN (06:00)
[2020-07-08] MEDS: OMEPRAZOLE 20 MG CAP PO SCH (08:27)
--- NOTE | 2020-07-08 09:47 | IPNPDOC ---
Obstetrical Progress Note Date of Service Jul 08, 2020 Subjective Patient feeling rectovaginal pressure. Overall, she has adequate pain relief with epidural. Objective Vital Signs Date Time Temp Pulse Resp B/P (MAP) Pulse Ox O2 Delivery O2 Flow Rate FiO2 07/08/20 07:29 98.7 105 20 100 Room Air 07/08/20 07:18 144/67 (92) Assessment Decelerations: Variable, Recurrent Heart Rate Tracing: Category II Tocometer Frequency: every 1-3 min. Sterile Vaginal Examination Dilation: complete Effacement (%): 100% Station: -1, 0 (Continue with maternal pushing efforts.) KASSI QIU DO Jul 08, 2020 09:47
--- NOTE | 2020-07-08 10:27 | IPNPDOC ---
Obstetrical Progress Note Date of Service Jul 08, 2020 Subjective Patient has adequate pushing efforts. Objective Vital Signs Date Time Temp Pulse Resp B/P (MAP) Pulse Ox O2 Delivery O2 Flow Rate FiO2 07/08/20 07:29 98.7 105 20 100 Room Air 07/08/20 07:18 144/67 (92) Assessment Variability: Moderate (with periods of minimal) Decelerations: Variable, Recurrent Heart Rate Tracing: Category II Sterile Vaginal Examination Dilation: complete Effacement (%): 100% Station: -1, 0 (occiput posterior/asynclitic) Assessment and Plan Anticipate: Section (Minimal descent with adequate maternal pushing efforts. However, persistent Cat II FHR is prompting me to recommend PLTCS for expedited delivery. R/b/a/i of PLTCS were reviewed and the patient agrees and has signed consent) KASSI QIU DO Jul 08, 2020 10:27
[2020-07-08] MEDS ORDERED: BICITRA 30ML SOLN UDC As Ordered ONE (10:29)
[2020-07-08] MEDS ORDERED: BICITRA 30ML SOLN UDC PO ONE (10:30)
[2020-07-08] MEDS ORDERED: ceFAZolin SOD 3 GM IV Place Holder IV ONE (10:30)
[2020-07-08] MEDS ORDERED: AZITHROMYCIN INJ 500 MG, VIAL MATE ADAPTER 1 EACH in NS 250 ML IV ONE (10:30)
[2020-07-08] MEDS ORDERED: AZITHROMYCIN INJ 500MG VIAL (J0456 PER 500MG) As Ordered ONE (10:31)
[2020-07-08] MEDS ORDERED: ceFAZolin 1GM VIAL (J0690 PER 500MG) As Ordered ONE (10:33)
[2020-07-08] MEDS ORDERED: ceFAZolin 2 GM/D5W 50 ML IV BAG (J0690 PER 500MG) As Ordered ONE (10:33)
[2020-07-08] MEDS ORDERED: VIAL MATE ADAPTER XX ONE (10:34)
[2020-07-08] MEDS ORDERED: ceFAZolin SOD 2 GM in IV 1 EA IV ONE (10:40)
[2020-07-08] MEDS ORDERED: ceFAZolin SOD 1 GM in D5W MINI-BAG PLUS 50 ML IV ONE (10:40)
[2020-07-08] MEDS ORDERED: OXYTOCIN INJ 10 UNITS/ML VIAL (J2590) As Ordered ONE (10:46)
[2020-07-08] MEDS ORDERED: SODIUM BICARBONATE 8.4% INJ 50 ML SYRINGE As Ordered ONE (10:46)
[2020-07-08] MEDS ORDERED: LIDOCAINE 2% W/EPINEPHRINE 20ML VIAL **PRES FREE As Ordered ONE (10:46)
[2020-07-08] MEDS ORDERED: PHENYLephrine 500MCG 5ML (100MCG/ML) SYRINGE As Ordered ONE ×2 (10:54→11:15)
[2020-07-08] MEDS ORDERED: ONDANSETRON 4MG/2ML VIAL As Ordered ONE (10:57)
[2020-07-08] MEDS ORDERED: dexameTHASONE 4 MG/ML 1ML VIAL (J1100 PER 1MG) As Ordered ONE (10:57)
[2020-07-08] MEDS ORDERED: KETOROLAC 60MG 2ML VIAL As Ordered ONE (11:06)
[2020-07-08] MEDS ORDERED: MORPHINE PRES-FREE INJ 10 MG/10 ML VIAL (J2274) As Ordered ONE (11:08)
[2020-07-08] MEDS ORDERED: NALBUPHINE HCL 10 MG/ML AMP (J2300) IV PRN (11:10)
[2020-07-08] MEDS ORDERED: METOCLOPRAMIDE INJ 10MG/2ML VIAL (J2765 PER 1) IV PRN (11:10)
[2020-07-08 11:14] LABS: CORD GAS ABE V -13.2; CORD GAS HCO3 V 19.3 MEQ/L; CORD GAS O2 SAT V 19.5 %; CORD GAS PCO2 V 79.3 mmHg; CORD GAS PH V 7.005 UNITS; CORD GAS PO2 V 17.7 mmHg; CORD GAS SBC V 12.9 MEQ/L; CORD GAS TCO2 V 21.8 MEQ/L
[2020-07-08 11:17] LABS: CORD GAS HCO3 A 19.4 MEQ/L; CORD GAS O2 SAT A 27.6 %; CORD GAS PCO2 A 86.3 mmHg; CORD GAS PO2 A 22.3 mmHg; CORD GAS SBC A 12.6 MEQ/L; CORD GAS TCO2 A 22.1 MEQ/L
[2020-07-08 11:20] LABS: CORD GAS PH A 6.97 UNITS
[2020-07-08] MEDS ORDERED: OXYTOCIN DRIP 30 UNITS in IV 1 EA IV SCH (11:33)
[2020-07-08] MEDS ORDERED: ACETAMINOPHEN 500 MG TAB PO PRN (11:35)
[2020-07-08] MEDS ORDERED: RHOGAM 300 MCG (1500 IU) INJ (J2790) IM SCH (11:35)
[2020-07-08] MEDS ORDERED: SIMETHICONE 80MG CHEW TAB PO PRN (11:35)
[2020-07-08] MEDS ORDERED: MEASLES,MUMPS,RUBELLA VACCINE INJ (MMR-II) (90707) SC SCH (11:35)
[2020-07-08] MEDS ORDERED: PERCOCET 5MG/325MG TAB PO PRN ×2 (11:35)
--- NOTE | 2020-07-08 11:44 | ROOPDOC ---
[facility] Report Of Operation Report of Operation DATE OF PROCEDURE: 07/08/20 PREPROCEDURE DIAGNOSES: Non-reassuring heart rate tracing, 37+6 weeks EGA. POSTPROCEDURE DIAGNOSES: same PROCEDURE: Primary low transverse section SURGEON: Mark Arellano DO FACOG COMPUTING MACHINE OPERATOR: Adela Root CNM (Essential role in retraction, extraction, and closure of all tissue layers) ANESTHESIA: Epidural ESTIMATED BLOOD LOSS: 600 mL. IV FLUIDS: 1000 mL LR URINE OUTPUT: 150 mL COMPLICATIONS: None. PREOPERATIVE ANTIBIOTICS: Ancef 3g IV x 1, Azithromycin 500mg IV. COMPLICATIONS: none DATA: Apgars 3 and 9. Birthweight 3628 g, 8 lbs 0 oz. Cord gases: see [employer] SPECIMENS: none PRIMARY INDICATION FOR : Non-reassuring heart rate tracing. DESCRIPTION OF PROCEDURE: The patient was counseled on the risks, benefits, indications and alternatives of the procedure. Informed consent was obtained. She was taken to the operating room with IV running and placed on the operating table in the dorsal supine position with a leftward tilt. Regional anesthesia was found to be adequate. Sequential compression devices were placed on the lower extremities. A Berry catheter was placed under sterile conditions. She was prepared and draped in normal sterile fashion. A time out was performed per protocol. Regional anesthesia was again found to be adequate. A Pfannenstiel skin incision was made with the 10 blade. The 10 blade was used to dissect down to the level of the rectus sheath fascia. The rectus sheath pressure was incised midline and this was extended bilaterally with Rivas scissors , and manual stretch. The rectus muscle bellies were dissected off the rectus sheath fascia superiorly and inferiorly using both sharp and blunt dissection. The midline was identified. The peritoneum was identified and entered digitally. The peritoneal opening was extended with manual stretch. The Mobius retractor was placed. The vesicouterine peritoneum was dissected with Metzenbaum scissors to create the bladder flap. A low transverse uterine incision was made with the 10 blade. This was extended with manual stretch. The amniotic sac was punctured, and clear fluid was noted. The baby delivered through the hysterotomy without difficulty. The cord was doubly clamped and cut, and the baby was handed off to awaiting care. data shown above. Cord gases and blood were obtained. The placenta was removed manually. The intrauterine cavity was cleared of all clot and debris. The hysterotomy was closed with 0 Vicryl in running locked fashion. This was reinforced with a second imbricating layer using 0 Vicryl in running fashion. Excellent hemostasis of the hysterotomy was noted. The pelvis was irrigated and the fluid suctioned. The Mobius retractor was removed. The peritoneum was closed with 3-0 Vicryl running fashion. The rectus muscle bellies were reapproximated with interrupted stitches using 3-0 Vicryl. The rectus muscles bellies were hemostatic. The rectus sheath fascia was closed with 0 Vicryl running fashion. The subcutaneous layer was irrigated and the fluid suctioned. Small bleeding vessels were cauterized with Bovie. Excellent hemostasis was noted. The subcutaneous layer was reapproximated with 3-0 Vicryl running fashion. Skin was closed with 3-0 Monocryl in subcuticular fashion. An Optifoam bandage was placed over the closed incision. Sponge, needle and instrument counts were correct per protocol throughout the procedure. The patient tolerated the entire procedure very well. She was transferred to the PACU in stable condition. DO CIERRA Faye JONATHAN R. DO Jul 08, 2020 11:44
[2020-07-08] MEDS ORDERED: PERCOCET PO (11:46)
[2020-07-08] MEDS ORDERED: IBUP80TA PO (11:46)
[2020-07-08] MEDS ORDERED: DOK1CAP7 PO (11:46)
[2020-07-08] MEDS ORDERED: KETOROLAC 30 MG/ML 1ML VIAL IV SCH (12:00)
[2020-07-08] MEDS ORDERED: fentaNYL 100 MCG/2 ML INJECTION (J3010) IV PRN (12:15)
[2020-07-08 13:59] LABS: HIV 1&2 SCREEN CENTAUR NEGATIVE (NEGATIVE)
[2020-07-08] MEDS: LR 1,000 ML IV SCH ×2 (16:12→19:33)
[2020-07-08] MEDS: busPIRone 5 MG TAB PO SCH ×2 (16:38→20:52)
[2020-07-08] MEDS: DOCUSATE SODIUM 100MG CAPSULE PO SCH ×2 (16:39→20:52)
[2020-07-08] MEDS: PRENATAL VITAMINS CHEWABLE TABLET PO SCH (16:40)
[2020-07-08] MEDS: KETOROLAC 30 MG/ML 1ML VIAL IV SCH (18:00)
[2020-07-09] MEDS: KETOROLAC 30 MG/ML 1ML VIAL IV SCH ×2 (00:38→06:08)
[2020-07-09 02:00] VITALS: BP 96/68
[2020-07-09] MEDS: LR 1,000 ML IV SCH ×2 (03:33→13:35)
[2020-07-09 05:41] VITALS: BP 100/57
[2020-07-09 08:30] VITALS: BP 110/70
[2020-07-09] MEDS ORDERED: INFLUENZA QUADRIVALENT PF VACCINE 0.5ML SYRINGE IM ONE (09:00)
[2020-07-09] MEDS: PRENATAL VITAMINS CHEWABLE TABLET PO SCH (09:05)
[2020-07-09] MEDS: DOCUSATE SODIUM 100MG CAPSULE PO SCH ×2 (09:06→20:25)
[2020-07-09] MEDS: OMEPRAZOLE 20 MG CAP PO SCH (09:06)
[2020-07-09] MEDS: busPIRone 5 MG TAB PO SCH ×2 (09:07→20:25)
[2020-07-09 09:21] LABS: HEMATOCRIT 30.1 % (36.0-47.0); HEMOGLOBIN 9.3 g/dl (12.0-15.5); MEAN CORPUSCULAR HEMOGLOBIN 27.1 pg (27.0-33.0); MEAN CORPUSCULAR HGB CONC 30.9 g/dl (32.0-36.5); MEAN CORPUSCULAR VOLUME 87.8 fl (80.0-96.0); PLATELET COUNT, AUTOMATED 141 10^3/uL (150-450); RED BLOOD COUNT 3.43 10^6/uL (4.00-5.40); WHITE BLOOD COUNT 12.6 10^3/uL (4.0-10.0)
[2020-07-09 14:00] VITALS: BP 108/54
[2020-07-09] MEDS: IBUPROFEN 800 MG TAB PO SCH ×2 (14:37→22:35)
[2020-07-09 18:00] VITALS: BP 122/56
[2020-07-09 22:00] VITALS: BP 112/54
[2020-07-10 02:00] VITALS: BP 143/76
[2020-07-10] MEDS: IBUPROFEN 800 MG TAB PO SCH (05:59)
[2020-07-10 06:00] VITALS: BP 114/56
[2020-07-10] MEDS: DOCUSATE SODIUM 100MG CAPSULE PO SCH (08:05)
[2020-07-10] MEDS: OMEPRAZOLE 20 MG CAP PO SCH (08:06)
[2020-07-10] MEDS: busPIRone 5 MG TAB PO SCH (08:06)
[2020-07-10] MEDS: PRENATAL VITAMINS CHEWABLE TABLET PO SCH (08:06)
--- NOTE | 2020-07-10 08:58 | IPNPDOC ---
Progress Note Date of Service: Jul 10, 2020 Day#: 2 Progress Note PPD2/POD2 SUBJECT: Lorraine is a 24yo s/p uncomplicated PLTCS at 37wk for NRFHT after presenting in active labor with SROM, doing well /post-op day #2. She is voiding spontaneously without issue. She has been ambulating and tolerating regular diet. Breast feeding without issue. Reports lochia is like a light period. Denies fevers/chills/nausea/vomiting/CP/SOB. OBJECTIVE: VITAL SIGNS: Within normal limits, afebrile. Alert and oriented times three. Abdomen: Fundus firm at U-2. Soft, appropriately tender to palpation, pfannenstiel incision covered by dry/clean/intact optifoam dressing. Extremities: no pain with palpation of calves Labs: pre-op H/H: 12.7/41.3 post-op H/H: 9.3/30.1 ASSESSMENT: Lorraine is a 24yo s/p uncomplicated PLTCS at 37wk for NRFHT after presenting in active labor with SROM, doing well /post-op day #2. Vitals within normal limits, afebrile, hemodynamically stable with no evidence of infection. PLAN: 1. Discharge to home 2. Motrin and percocet for pain. Colace for bowel regimen. 3. Regular diet 4. Encourage ambulation and hydration as well as breast feeding 5. Return precautions discussed 6. Remove optifoam and steri strips in 1 week, keep incision clean and dry 7. No heavy lifting, vaginal rest 6 weeks Danay Arboleda MD VS, I&O, 24H, Fishbone Vital Signs/I&O Vital Signs Date Time Temp Pulse Resp B/P (MAP) Pulse Ox O2 Delivery O2 Flow Rate FiO2 07/10/20 06:00 97.6 82 20 114/56 (75) 98 Room Air Danay Arboleda MD Jul 10, 2020 08:58
--- NOTE | 2020-07-10 09:01 | DS.PDOC ---
Discharge Summary General Date of Admission Jul 08, 2020 at 04:55 Date of Discharge Jul 10, 2020 Discharge Summary PROCEDURES PERFORMED DURING STAY: primary low transverse section ADMITTING DIAGNOSES: 1. active labor with SROM at term 2. obesity DISCHARGE DIAGNOSES: 1. active labor with SROM at term 2. obesity 3. NRFHT, delivered via COMPLICATIONS/CHIEF COMPLAINT: ?Rom, Labor Check. HISTORY OF PRESENT ILLNESS/HOSPITAL COURSE: Lorraine is a 24yo s/p uncomplicated PLTCS at 37wk for NRFHT after presenting in active labor with SROM, doing well /post-op day #2. She has had a benign post-op course. Vitals within normal limits, afebrile, hemodynamically stable with no evidence of infection. DISCHARGE MEDICATIONS: Please see below. ALLERGIES: Please see below. PHYSICAL EXAMINATION ON DISCHARGE: VITAL SIGNS: Within normal limits, afebrile. Alert and oriented times three. Abdomen: Fundus firm at U-2. Soft, appropriately tender to palpation, pfannenstiel incision covered by dry/clean/intact optifoam dressing. Extremities: no pain with palpation of calves LABORATORY DATA: Please see below. pre-op H/H: 12.7/41.3 post-op H/H: 9.3/30.1 DISCHARGE PLAN/INSTRUCTIONS: 1. Discharge to home 2. Motrin and percocet for pain. Colace for bowel regimen. 3. Regular diet 4. Encourage ambulation and hydration as well as breast feeding 5. Return precautions discussed 6. Remove optifoam and steri strips in 1 week, keep incision clean and dry 7. No heavy lifting, vaginal rest 6 weeks DISCHARGE CONDITION: Stable TIME SPENT ON DISCHARGE: Greater than 20 minutes. Vital Signs/I&Os Vital Signs Date Time Temp Pulse Resp B/P (MAP) Pulse Ox O2 Delivery O2 Flow Rate FiO2 07/10/20 06:00 97.6 82 20 114/56 (75) 98 Room Air Discharge Medications Scheduled Buspirone HCl (Buspirone HCl) 5 Mg Tablet, 5 MG PO BID, (Reported) Docusate Sodium (Dok) 100 Mg Capsule, 100 MG PO BID Ferrous Gluconate (Iron) 236 Mg Tablet, 1 TAB PO DAILY, (Reported) Ibuprofen (Ibuprofen) 800 Mg Tablet, 800 MG PO Q8H Omeprazole (Omeprazole) 40 Mg Capsule.dr, 40 MG PO DAILY, (Reported) Vit,Calc76/Iron/Folic (Prenatabs Rx Tablet) 1 Each Tablet, 1 TAB PO DAILY, (Reported) Scheduled PRN Oxycodone/Acetaminophen (Oxycodone-Acetaminophen 5-325) 1 Each Tablet, 1 TAB PO Q4H PRN for MILD/MODERATE PAIN (PS 1-7) Miscellaneous Medications Acetaminophen (Tylenol) 325 Mg Capsule, 325 MG PO, (Reported) Allergies Coded Allergies: No Known Allergies (Unverified , 04/16/19) Danay Arboleda MD Jul 10, 2020 09:01
== END 2020-07-10 11:55 | disposition home or self-care (01) | DRG 540 ==
LOC: M LDO 02:58 → M LDI 04:55 → M OBS 13:15
PROVIDERS: ADMIT Obstetrics & Gynecology; ATTEND Obstetrics & Gynecology
PROC: 10D00Z1 Extraction of Products of Conception, Low, Open Approach (ICD-10-PCS; principal; 2020-07-08 11:36)
DX: O34.30 Maternal care for cervical incompetence, unspecified trimester (principal); E66.9 Obesity, unspecified; O99.214 Obesity complicating childbirth; Z37.0 Single live birth; Z3A.37 37 weeks gestation of pregnancy; Z79.899 Other long term (current) drug therapy; O76 Abnormality in fetal heart rate and rhythm complicating labor and delivery

== ENCOUNTER → 2021-07-28 | Outpatient (CLI) | payer BC ==
[~2021-07-28] MED LIST changes: +DOK1CAP4 PO; +IBUP80TA PO; +OMEP40CA4 PO; -OMEP40CA97 PO; +PERCOCET PO
[2021-07-28 15:03] LABS: BASO % 0.4 % (0.0-1.0); EOS # 0.2 10^3/uL (0.0-0.5); EOS % 1.7 % (0.0-3.0); HEMATOCRIT 40.5 % (36.0-47.0); HEMOGLOBIN 12.7 g/dl (12.0-15.5); LYMPH # 2.1 10^3/uL (1.5-5.0); LYMPH % 22.4 % (24.0-44.0); MEAN CORPUSCULAR HEMOGLOBIN 26.5 pg (27.0-33.0); MEAN CORPUSCULAR HGB CONC 31.4 g/dl (32.0-36.5); MEAN CORPUSCULAR VOLUME 84.6 fl (80.0-96.0); MONO # 0.6 10^3/uL (0.0-0.8); MONO % 6.8 % (2.0-8.0); NEUTROPHILS # 6.4 10^3/uL (1.5-8.5); PLATELET COUNT, AUTOMATED 261 10^3/uL (150-450); RED BLOOD COUNT 4.79 10^6/uL (4.00-5.40); WHITE BLOOD COUNT 9.4 10^3/uL (4.0-10.0)
[2021-07-28 15:36] LABS: ALBUMIN 3.8 GM/DL (3.2-5.2); ALT/SGPT 32 U/L (12-78); BILIRUBIN,TOTAL 0.3 MG/DL (0.2-1.0); BLOOD UREA NITROGEN 17 MG/DL (7-18); CALCIUM LEVEL 9.4 MG/DL (8.5-10.1); CARBON DIOXIDE LEVEL 27 MEQ/L (21-32); CHLORIDE LEVEL 107 MEQ/L (98-107); CREATININE FOR GFR 0.71 MG/DL (0.55-1.30); GLOMERULAR FILTRATION RATE > 60.0 (>60); GLUCOSE, FASTING 95 MG/DL (70-100); POTASSIUM SERUM 4.2 MEQ/L (3.5-5.1); SODIUM LEVEL 140 MEQ/L (136-145); THYROID STIMULATING HORMONE 0.902 uIU/ML (0.358-3.740); TOTAL PROTEIN 7.4 GM/DL (6.4-8.2)
== END ==
LOC: M PLALAB 12:54
PROVIDERS: ATTEND Family Medicine
DX: R53.83 Other fatigue (principal)

== ENCOUNTER → 2023-09-15 | Outpatient (REF) | payer OTHER | LOC: MERGE 14:54 → M SFHCWAGY 14:54 | PROVIDERS: ATTEND Nurse Practitioner Family | DX: Z12.4 Encounter for screening for malignant neoplasm of cervix (principal); Z01.419 Encounter for gynecological examination (general) (routine) without abnormal findings; Z77.9 Other contact with and (suspected) exposures hazardous to health ==

== ENCOUNTER → 2024-05-22 | Outpatient (CLI) | payer OTHER ==
[2024-05-22 14:15] LABS: BASO % 0.3 % (0.0-1.0); EOS # 0.1 10^3/uL (0.0-0.5); EOS % 1.8 % (0.0-3.0); HEMATOCRIT 34.7 % (36.0-47.0); HEMOGLOBIN 9.7 g/dl (12.0-15.5); LYMPH # 1.5 10^3/uL (1.5-5.0); LYMPH % 25.2 % (24.0-44.0); MEAN CORPUSCULAR HEMOGLOBIN 19.6 pg (27.0-33.0); MEAN CORPUSCULAR VOLUME 70.1 fl (80.0-96.0); MONO # 0.6 10^3/uL (0.0-0.8); NEUTROPHILS # 3.7 10^3/uL (1.5-8.5); NEUTROPHILS % 62.4 % (36.0-66.0); PLATELET COUNT, AUTOMATED 302 10^3/uL (150-450); RED BLOOD COUNT 4.95 10^6/uL (4.00-5.40)
[2024-05-22 14:18] LABS: ALBUMIN 3.7 G/DL (3.2-5.2); ALKALINE PHOSPHATASE 82 U/L (35-104); ALT/SGPT 21 U/L (7.0-40); AST/SGOT 17 U/L (<34); BILIRUBIN,TOTAL 0.3 MG/DL (0.3-1.2); BLOOD UREA NITROGEN 15 MG/DL (9-23); CALCIUM LEVEL 9.1 MG/DL (8.5-10.1); CARBON DIOXIDE LEVEL 26 MMOL/L (20-31); CHLORIDE LEVEL 106 MMOL/L (98-107); CHOLESTEROL LEVEL 153 MG/DL (<200); CHOLESTEROL RISK RATIO 3.66 (<5); CREATININE FOR GFR 0.55 MG/DL (0.55-1.30); GLOMERULAR FILTRATION RATE > 60.0 (>60); GLUCOSE, FASTING 89 MG/DL (60-100); HDL CHOLESTEROL 41.7 MG/DL (>40); IRON (FE) 22 UG/DL (50-170); LDL CHOLESTEROL 94.7 MG/DL (<100); NON-HDL-C 111.3 MG/DL; PERCENT SATURATION 5.1 % (13.2-45.0); POTASSIUM SERUM 4.5 MMOL/L (3.5-5.1); SODIUM LEVEL 138 MMOL/L (136-145); TOTAL IRON BINDING CAPACITY 431 UG/DL (250-425); TOTAL PROTEIN 7.3 G/DL (5.7-8.2); TRIGLYCERIDES LEVEL 83 MG/DL (<150)
[2024-05-22 14:20] LABS: FERRITIN 4.2 NG/ML (7.3-270.7)
== END ==
LOC: M PLALAB 09:33
PROVIDERS: ATTEND Family Medicine
DX: Z00.00 Encounter for general adult medical examination without abnormal findings (principal); E61.1 Iron deficiency

== ENCOUNTER → 2024-10-18 | Outpatient (REF) | payer OTHER | LOC: M PLALAB 15:40 | PROVIDERS: ATTEND Obstetrics & Gynecology | DX: Z53.9 Procedure and treatment not carried out, unspecified reason (principal) ==

== ENCOUNTER → 2024-11-14 | Outpatient (CLI) | payer OTHER | LOC: M PLALAB 13:39 | PROVIDERS: ATTEND Obstetrics & Gynecology | DX: Z34.80 Encounter for supervision of other normal pregnancy, unspecified trimester (principal) ==

== ENCOUNTER → 2024-11-14 | Outpatient (CLI) | payer OTHER ==
[2024-11-14 16:04] LABS: PLATELET COUNT, AUTOMATED 248 10^3/uL (150-450)
[2024-11-14 16:58] LABS: HIV 1&2 SCREEN NEGATIVE (NEGATIVE)
[2024-11-14 17:06] LABS: HEPATITIS C VIRUS ABY INDEX < 0.02 INDEX (<0.8)
[2024-11-14 17:25] LABS: Trichomonas vaginalis (AMP) NOT DETECTED (NEGATIVE)
[2024-11-14 17:48] LABS: GC DNA AMPLIFICATION NEGATIVE (NEGATIVE)
== END ==
LOC: M PLALAB 13:41
PROVIDERS: ATTEND Obstetrics & Gynecology
DX: O99.210 Obesity complicating pregnancy, unspecified trimester (principal)

== ENCOUNTER 2024-12-05 07:19 | Day surgery (SDC) | payer OTHER ==
[~2024-12-05] VITALS: Ht 167.6 cm; Wt 110.2 kg
[~2024-12-05 07:19] MED LIST changes: +FERR32TA PO
[2024-12-05] MEDS ORDERED: LR 1,000 ML IV SCH ×2 (07:35→10:10)
[2024-12-05] MEDS ORDERED: LIDOCAINE 2% 100 MG/5 ML SDV (FOR ANES.) As Ordered ONE (08:20)
[2024-12-05] MEDS: ceFAZolin SOD 2 GM IV ONCE IV ONE (09:26)
[2024-12-05 09:31] LABS: PLATELET COUNT, AUTOMATED 237 10^3/uL (150-450)
[2024-12-05] MEDS ORDERED: PHENYLephrine 500MCG 5ML (100MCG/ML) SYRINGE As Ordered ONE (09:50)
[2024-12-05] MEDS ORDERED: ONDANSETRON 4MG 2ML VIAL As Ordered ONE (09:50)
[2024-12-05] MEDS ORDERED: KETOROLAC 30 MG/ML 1 ML VIAL As Ordered ONE (09:51)
[2024-12-05] MEDS ORDERED: ACETAMINOPHEN 1000MG/100ML IV BAG As Ordered ONE (09:52)
[2024-12-05] MEDS ORDERED: ONDANSETRON 4MG 2ML VIAL IV PRN (10:10)
[2024-12-05 10:11] LABS: HCG, SERUM QUALITATIVE POSITIVE (NEGATIVE)
[2024-12-05 11:50] VITALS: BP 129/73; TEMP 97.2; O2SAT 99
== END 2024-12-05 12:40 | disposition home or self-care (01) ==
LOC: M SDC 07:19
PROVIDERS: ATTEND Obstetrics & Gynecology
DX: O34.32 Maternal care for cervical incompetence, second trimester (principal); O99.612 Diseases of the digestive system complicating pregnancy, second trimester; K21.9 Gastro-esophageal reflux disease without esophagitis; O99.012 Anemia complicating pregnancy, second trimester; D64.9 Anemia, unspecified; Z79.899 Other long term (current) drug therapy; Z87.42 Personal history of other diseases of the female genital tract; Z3A.14 14 weeks gestation of pregnancy
CPT/HCPCS: 36415; 59320; 84703; 85027; 86850; 86900; 86901; J0131; J0690; J1885; J2371; J2405

== ENCOUNTER → 2024-12-25 | Outpatient (REF) | payer OTHER ==
[2024-12-25 10:34] LABS: APPEARANCE, URINE CLOUDY (CLEAR); BACTERIA, URINE AUTO 1+ (NEGATIVE); BILIRUBIN, URINE AUTO NEGATIVE (NEGATIVE); BLOOD, URINE BLOOD NEGATIVE (NEGATIVE); GLUCOSE, URINE (UA) AUTO NEGATIVE (NEGATIVE); KETONE, URINE AUTO NEGATIVE (NEGATIVE); LEUKOCYTE ESTERASE, URINE AUTO 2+ (NEGATIVE); MUCUS, URINE SMALL (NEGATIVE); NITRITE, URINE AUTO NEGATIVE (NEGATIVE); PROTEIN, URINE AUTO 1+ mg/dL (NEGATIVE); RBC, URINE AUTO 1 /HPF (0-3); SPECIFIC GRAVITY URINE AUTO 1.026 (1.002-1.035); SQUAMOUS EPITHELIAL CELL UR AU 32 /HPF (0-6); UROBILINOGEN, URINE AUTO 0.2 mg/dL (0.0-2.0); WBC, URINE AUTO 26 /HPF (0-3)
== END ==
LOC: M PLALAB 08:34
PROVIDERS: ATTEND Advanced Practice Midwife
DX: R30.0 Dysuria (principal)

== ENCOUNTER → 2025-01-08 | Outpatient (CLI) | payer OTHER | LOC: M WHC 09:50 | PROVIDERS: ATTEND Obstetrics & Gynecology | DX: Z34.82 Encounter for supervision of other normal pregnancy, second trimester (principal) ==

== ENCOUNTER → 2025-01-12 | Outpatient (REF) | payer OTHER | LOC: M SFHCWAGY 15:02 | PROVIDERS: ATTEND Advanced Practice Midwife | DX: R82.90 Unspecified abnormal findings in urine (principal) ==

== ENCOUNTER → 2025-02-01 | Outpatient (CLI) | payer OTHER | LOC: M WHC 08:46 | PROVIDERS: ATTEND Advanced Practice Midwife | DX: Z36.2 Encounter for other antenatal screening follow-up (principal) ==

== ENCOUNTER → 2025-02-27 | Outpatient (CLI) | payer OTHER | LOC: M WHC 07:32 | PROVIDERS: ATTEND Advanced Practice Midwife | DX: Z36.2 Encounter for other antenatal screening follow-up (principal) ==

== ENCOUNTER → 2025-03-08 | Outpatient (CLI) | payer OTHER ==
[2025-03-08 13:20] LABS: PLATELET COUNT, AUTOMATED 237 10^3/uL (150-450)
[2025-03-08 13:42] LABS: GLUCOSE CHALLENGE TEST 1 HOUR 102 MG/DL (LESS THAN 140)
[2025-03-08 14:11] LABS: HIV 1&2 SCREEN NEGATIVE (NEGATIVE)
[2025-03-08 14:19] LABS: HEPATITIS C VIRUS ABY INDEX < 0.02 INDEX (<0.8)
[2025-03-08 14:21] LABS: Trichomonas vaginalis (AMP) NOT DETECTED (NEGATIVE)
[2025-03-08 14:46] LABS: GC DNA AMPLIFICATION NEGATIVE (NEGATIVE)
== END ==
LOC: M PLALAB 10:54
PROVIDERS: ATTEND Specialist
DX: Z34.82 Encounter for supervision of other normal pregnancy, second trimester (principal)